=== PATIENT | male | born 1975 | race Two or more races ===

== ENCOUNTER 2019-12-31 15:29 | Emergency (ER) | payer OTHER ==
[~2019-12-31] VITALS: Ht 154.9 cm; Wt 90.0 kg
[2019-12-31 15:43] VITALS: BP 127/76
--- NOTE | 2019-12-31 15:52 | NUR ---
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
--- NOTE | 2019-12-31 15:58 | NUR ---
STREP SWAB OBTAINED BY PROVIDER AND SENT TO LAB. PT TO WAIN IN RESP LOBBY PENDING RESULTS.
== END 2019-12-31 17:34 | disposition home or self-care (01) ==
LOC: ED 16:25
DX: J06.9 Acute upper respiratory infection, unspecified (principal); J02.8 Acute pharyngitis due to other specified organisms; B97.89 Other viral agents as the cause of diseases classified elsewhere; E11.9 Type 2 diabetes mellitus without complications
CPT/HCPCS: 87081; 87147; 87880; 99283